=== PATIENT | male | born 1950 | race Caucasian/White ===

== ENCOUNTER 2021-12-03 11:03 | Outpatient (CLI) | payer MEDICARE, MEDICAID ==
[~2021-12-03 11:03] MED LIST: ALBU18HF2 INH; ASPI-611 PO; ATOR20TA PO; DOXY-224 PO; FLUT1AER IH; NICO-630 TD; TRAM50TA2 PO
== END 2021-12-03 23:59 | disposition home or self-care (01) ==
LOC: CARD DIAG 11:03
PROVIDERS: ATTEND Family Medicine
DX: I34.0 Nonrheumatic mitral (valve) insufficiency (principal)
CPT/HCPCS: 93306